=== PATIENT | female | born 1990 | race American Indian/Alaskan Native ===

== ENCOUNTER 2020-10-01 22:48 | Emergency (ER) | payer BC, OTHER ==
[2020-10-01 22:55] VITALS: PULSE 100
[2020-10-01 23:01] VITALS: BP 192/111
[2020-10-01] MEDS ORDERED: Cyclobenzaprine 10 MG Tab PO ONE (23:12)
[2020-10-01] MEDS ORDERED: Acetaminophen/HYDROcodone 325-10 MG Tab PO ONE (23:12)
--- NOTE | 2020-10-01 23:15 | EDM.PDOC ---
ED HPI GENERAL MEDICAL PROBLEM - General Chief Complaint: Back Pain or Injury Stated Complaint: LOWER BACK PAIN Time Seen by Provider: 10/01/20 22:55 Source of Information: Reports: Patient History Limitations: Reports: No Limitations - History of Present Illness INITIAL COMMENTS - FREE TEXT/NARRATIVE: ED with c/o low back pain for 2 weeks, Fell while hunting. No pain until 1-2 days after fall. No numbness or weakness. Pain worse left buttock. Has been to chiropractor and scheduled for follow up in am. Also clinic appointment scheduled in am. Has been using tylenol at home. Has not taken ibuprofen. Lower Back Pain Score (Numeric/FACES): 6 - Related Data Allergies Allergy/AdvReac Type Severity Reaction Status Date / Time No Known Allergies Allergy Verified 10/01/20 22:55 Home Meds: Home Meds . [No Known Home Meds] 03/09/14 [History] Past Medical History - Past Health History Medical/Surgical History: Denies Medical/Surgical History - Past Surgical History Female Surgical History: Reports: Section, Tubal Ligation Social & Family History - Tobacco Use Tobacco Use Status *Q: Never Tobacco User Second Hand Smoke Exposure: No - Recreational Drug Use Recreational Drug Use: No - Living Situation & Occupation Occupation: Employed ED ROS GENERAL - Review of Systems Review Of Systems: Comprehensive ROS is negative, except as noted in HPI. ED EXAM,LOWER BACK PAIN/INJURY - Physical Exam Exam: See Below Exam Limited By: No Limitations General Appearance: Alert, Mild Distress, Obese Eye Exam: Bilateral Eye: EOMI Ears: Normal External Exam Nose: Normal Inspection Throat/Mouth: Normal Inspection Head: Atraumatic, Normocephalic Neck: Full Range of Motion Respiratory/Chest: No Respiratory Distress, Lungs Clear, Normal Breath Sounds Cardiovascular: Normal Peripheral Pulses, Regular Rate, Rhythm Back Exam: Muscle Spasm, Paraspinal Tenderness (left lower). No: Vertebral Tenderness Extremities: Normal Inspection Neurological: Alert, Normal Mood/Affect, Normal Plantar Flexion, Normal Reflexes, Oriented x 3, Straight Leg Raise (L). No: Saddle Anesthesia, Difficulty Walking DTR - Lower Extremities: 2+: Knee (R), Knee (L) Psychiatric: Normal Affect Skin Exam: Warm, Dry, Intact Course - Vital Signs Last Recorded V/S: Last Vital Signs Temp 99.9 F 10/01/20 22:51 Pulse 100 10/01/20 22:51 Resp 18 10/01/20 22:51 BP 192/111 H 10/01/20 22:51 Pulse Ox 100 10/01/20 22:51 - Orders/Labs/Meds Meds: Medications Discontinued Medications Generic Name Dose Route Start Last Admin Trade Name Mayocl PRN Reason Stop Dose Admin Hydrocodone Bitart/Acetaminophen 1 tab 10/01/20 23:12 10/01/20 23:17 Curtis 325-10 Mg PO 10/01/20 23:13 1 tab ONETIME ONE Administration Cyclobenzaprine HCl 10 mg 10/01/20 23:12 10/01/20 23:18 Flexeril PO 10/01/20 23:13 Not Given ONETIME ONE Departure - Departure Time of Disposition: 23:16 Disposition: Home, Self-Care 01 Condition: Good Clinical Impression: Low back pain Qualifiers: Chronicity: acute Back pain laterality: left Sciatica presence: with sciatica Sciatica laterality: sciatica of left side Qualified Code(s): M54.42 - Lumbago with sciatica, left side - Discharge Information *PRESCRIPTION DRUG MONITORING PROGRAM REVIEWED*: No *COPY OF PRESCRIPTION DRUG MONITORING REPORT IN PATIENT CL: No Instructions: Muscle Strain, [id number] Forms: ED Department Discharge Additional Instructions: ice or heat to low back ibuprofen 600mg every 8 hours as needed for back pain, alternate with tylenol 650mg flexeril 10mg every 8 hours as needed for back spasm follow up in clinic as scheduled avoid heavy lifting for one week sleep with pillow under knees to release pressure on low back , or if on side, use pillow between knees Sepsis Event Note (ED) - Evaluation Sepsis Screening Result: No Definite Risk - Focused Exam Vital Signs: Vital Signs Temp Pulse Resp BP Pulse Ox 10/01/20 22:51 99.9 F 100 18 192/111 H 100
== END 2020-10-01 23:31 | disposition home or self-care (01) ==
LOC: DL.ED 22:48
DX: M54.42 Lumbago with sciatica, left side (principal)
CPT/HCPCS: 99283; A9270

== ENCOUNTER 2022-02-23 12:39 | Emergency (ER) | payer BC ==
[2022-02-23] MEDS ORDERED: Ondansetron 4 MG Tab.DIS PO ONE (12:40)
[2022-02-23 13:04] VITALS: BP 103/81; PULSE 70
[2022-02-23] MEDS ORDERED: Ondansetron 4 MG/2 ML SDV IVPUSH ONE (13:04)
[2022-02-23] MEDS ORDERED: Sodium Chloride 0.9% 1,000 ML IV ONE (13:18)
[2022-02-23 13:40] LABS: CHLORIDE,CL 104 mmol/L (98-107); SODIUM,NA 132 mmol/L (136-145)
[2022-02-23 13:41] LABS: ESTIMATED GFR 94 mL/min (>=60)
[2022-02-23] MEDS ORDERED: Iopamidol 612 MG/ML 100 ML Bottle IVPUSH ONE (13:48)
[2022-02-23 14:23] LABS: CORONAVIRUS COVID-19 NAA NEGATIVE (NEGATIVE)
[2022-02-23] MEDS ORDERED: Ondansetron 4 MG Tab.DIS ONE (15:53)
== END 2022-02-23 16:00 | disposition home or self-care (01) ==
LOC: DL.ED 12:39
DX: K52.9 Noninfective gastroenteritis and colitis, unspecified (principal); I10 Essential (primary) hypertension; Z79.899 Other long term (current) drug therapy; Z20.822 Contact with and (suspected) exposure to COVID-19
CPT/HCPCS: 0240U; 36415; 74177; 80053; 81001; 81025; 82150; 83690; 84145; 85025; 86140; 96361; 96374; 99284-25; A9270-GY; J2405; J7030; Q9967

== ENCOUNTER 2024-02-14 00:27 | Emergency (ER) | payer BC ==
[2024-02-14] MEDS: Ketorolac 30 MG/ML SDV IVPUSH ONE (00:58)
[2024-02-14 01:27] VITALS: BP 129/72; PULSE 98
[2024-02-14] MEDS: Diphtheria,Pertussis(Acell),Tetanus Vaccine 0.5 ML Syringe IM ONE (01:49)
[2024-02-14] MEDS: Bacitracin Oint 1 GM U/D Packet TOP ONE (03:00)
[2024-02-14] MEDS: Lidocaine 1% with EPINEPHrine 1:100,000 20 ML MDV INJECT ONE (03:00)
== END 2024-02-14 04:21 | disposition home or self-care (01) ==
LOC: DL.ED 00:27
DX: S61.512A Laceration without foreign body of left wrist, initial encounter (principal); S51.812A Laceration without foreign body of left forearm, initial encounter; I10 Essential (primary) hypertension; M79.651 Pain in right thigh; M79.652 Pain in left thigh; Z23 Encounter for immunization; Z79.899 Other long term (current) drug therapy; Y04.8XXA Assault by other bodily force, initial encounter
CPT/HCPCS: 12001; 90471; 90715; 96374; 99284; A9270; J1885; J3490